=== PATIENT | male | born 1985 | race Caucasian/White ===

== ENCOUNTER 2020-05-30 08:13 | Emergency (ER) | payer OTHER ==
[~2020-05-30] VITALS: Ht 185.4 cm; Wt 74.8 kg
[2020-05-30] MEDS ORDERED: LORAZEPAM 1 MG TAB PO PRN (08:30)
[2020-05-30 10:29] VITALS: BP 129/83
== END 2020-05-30 10:30 | disposition home or self-care (01) ==
LOC: ER 08:23
DX: F41.9 Anxiety disorder, unspecified (principal)
CPT/HCPCS: 99283